=== PATIENT | male | born 1990 | race Hispanic/Latino ===

== ENCOUNTER 2018-10-10 20:39 | Emergency (ER) | payer OTHER, SELFPAY ==
[2018-10-10 20:45] VITALS: BP 153/107; PULSE 87; RESP 18; TEMP 36.6; O2SAT 99
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
[2018-10-10 22:23] VITALS: BP 153/83; PULSE 84; RESP 18; O2SAT 97
== END 2018-10-10 22:23 | disposition home or self-care (01) ==
PROVIDERS: Emergency Provider Nurse Practitioner Family
DX: S39.012A Strain of muscle, fascia and tendon of lower back, initial encounter (principal); V29.9XXA Motorcycle rider (driver) (passenger) injured in unspecified traffic accident, initial encounter
CPT/HCPCS: 72131; 99282; 99284

== ENCOUNTER 2018-12-04 23:28 | Emergency (ER) | payer OTHER, SELFPAY ==
[2018-12-04 23:35] VITALS: BP 155/115; PULSE 78; RESP 16; TEMP 36.8; O2SAT 97
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
[2018-12-05] MEDS: KETOROLAC 60 MG/2 ML VIAL 30 MG IM (00:12)
[2018-12-05] MEDS: CYCLOBENZAPRINE 10 MG PREPACK 1 BOTTLE MISC (00:13)
[2018-12-05 00:26] VITALS: BP 151/92; PULSE 88; RESP 16; O2SAT 99
== END 2018-12-05 00:27 | disposition home or self-care (01) ==
PROVIDERS: Emergency Provider Emergency Medicine
DX: S39.012D Strain of muscle, fascia and tendon of lower back, subsequent encounter (principal); V29.9XXD Motorcycle rider (driver) (passenger) injured in unspecified traffic accident, subsequent encounter
CPT/HCPCS: 96372; 99282; 99283; J1885